=== PATIENT | male | born 1990 | race Caucasian/White ===

== ENCOUNTER 2020-03-24 23:54 | Emergency (ER) | payer SELFPAY ==
[~2020-03-24] VITALS: Ht 175.3 cm; Wt 63.5 kg
[2020-03-24 23:54] VITALS: BP 111/75
[2020-03-25] MEDS ORDERED: LIDOCAINE /MPF 1% VIAL 5 ML VIAL ONE (00:17)
[2020-03-25] MEDS ORDERED: CEFTRIAXONE 500 MG VIAL ONE (00:17)
[2020-03-25] MEDS ORDERED: AZITHROMYCIN 250 MG TABLET ONE (00:18)
--- NOTE | 2020-03-25 00:25 | NUR ---
urine sent to lab
[2020-03-25] MEDS ORDERED: CEFTRIAXONE 500 MG VIAL IM ONE (00:30)
[2020-03-25] MEDS ORDERED: AZITHROMYCIN 250 MG TABLET PO ONE (00:30)
[2020-03-25 01:17] LABS: BILIRUBIN,URINE Negative (NEGATIVE); BLOOD, URINE Trace-intact Ery/uL (NEGATIVE); COLOR,URINE Yellow (YELLOW); KETONES,URINE Negative (NEGATIVE); LEUKOCYTE ESTERASE ,URINE Moderate (NEGATIVE); NITRITE, URINE Negative (NEGATIVE); PROTEIN,URINE Negative (NEGATIVE); UGLUCOSE Negative (NEGATIVE); UROBILINOGEN,URINE 0.2 EU/dL (0.2)
[2020-03-25 01:31] LABS: APPEARANCE,URINE HAZY (CLEAR)
[2020-03-25 01:33] LABS: BACTERIA,URINE Moderate /HPF (None Seen); SQUAMOUS EPITHELIAL CELL,UR Few /HPF (None Seen); WBC,URINE 81-100 /HPF (0-3)
== END 2020-03-25 00:26 | disposition home or self-care (01) ==
LOC: ER 23:56
DX: A64 Unspecified sexually transmitted disease (principal)
CPT/HCPCS: 81001; 87086; 87491; 87591; 96372; 99283; J0696; J3490; 81000-TC